=== PATIENT | female | born 1945 | race Caucasian/White ===

== ENCOUNTER 2017-12-09 14:00 | Outpatient (RCR) | payer MEDICARE, SELFPAY | END 2017-12-09 17:00 | disposition home or self-care (01) | LOC: PT 14:00 | PROVIDERS: PCP Family Medicine; Visit Provider Physician Assistant | DX: M54.5 Low back pain (principal); R10.2 Pelvic and perineal pain | CPT/HCPCS: 97033; 97035; 97110; 97140; 97164 ==